=== PATIENT | female | born 1980 | race Caucasian/White ===

== ENCOUNTER 2018-05-04 10:28 | Outpatient (CLI) | payer BC | END 2018-05-04 10:29 | disposition home or self-care (01) | LOC: BICMAMMO 10:28 | PROVIDERS: ATTEND Obstetrics & Gynecology | DX: Z12.31 Encounter for screening mammogram for malignant neoplasm of breast (principal); Z80.3 Family history of malignant neoplasm of breast | CPT/HCPCS: 77063; 77067 ==

== ENCOUNTER 2018-05-21 14:24 | Outpatient (CLI) | payer BC ==
--- NOTE | 2018-05-21 15:28 | MRI ---
MRI CERVICAL SPINE PERFORMED WITHOUT CONTRAST ENHANCEMENT: Date: 05/21/18 HISTORY: Neck pain with right arm radiculopathy. FINDINGS: The vertebral bodies are normal in height. There are some disc desiccation changes in the lower cervi sammy spine, with only minimal disc narrowing at C5-6. The spinal cord signal change is normal. C2-3: Unremarkable. C3-4: Unremarkable. C4-5: Unremarkable. C5-6: Minimal disc bulge without canal or significant foraminal narrowing. There are some minimal u ncovertebral changes at this level. C6-7: There is some borderline right-sided foraminal narrowing. No significant disc bulge. Left fora men does not appear significantly narrowed. C7-T1: Unremarkable. IMPRESSION: Mild right-sided foraminal narrowing at the C6-7 level. POS: [facility]
== END 2018-05-21 14:25 | disposition home or self-care (01) ==
LOC: SCSMRI 14:24
PROVIDERS: ATTEND Orthopaedic Surgery
DX: M54.12 Radiculopathy, cervical region (principal); M48.02 Spinal stenosis, cervical region
CPT/HCPCS: 72141

== ENCOUNTER 2018-06-29 12:51 | Outpatient (CLI) | payer BC ==
--- NOTE | 2018-06-29 13:10 | RAD ---
THREE VIEWS RIGHT FOOT: HISTORY: Right foot pain, 4th and 5th metatarsophalangeal injury. FINDINGS: AP, lateral, and oblique views right foot are obtained. The right foot is unremarkable. No evidence of right foot fractures, subluxations, or bony lesions s een. IMPRESSION: Normal 3 views right foot. POS: [facility]
== END 2018-06-29 12:52 | disposition home or self-care (01) ==
LOC: SCSRAD 12:51
PROVIDERS: ATTEND Family Medicine
DX: M79.671 Pain in right foot (principal)

== ENCOUNTER 2019-04-11 13:53 | Outpatient (CLI) | payer BC ==
--- NOTE | 2019-04-11 15:29 | MRI ---
MRI Cervical spine without contrast: HISTORY: Cervical radicular pain. Patient states chronic neck pain. COMPARISON: 05/21/2018 FINDINGS: The craniocervical junction is unremarkable. No significant cord signal abnormality. Paravertebral soft tissues have a normal appearance and normal signal intensity. C1-2:No significant stenosis. C2-3: There is no disc bulge or disc herniation. The central spinal canal and neural foramina are pat ent. C3-4: Minimal disc osteophyte complex is present. However, the central spinal canal and neural forami na are patent. C4-5: There is no disc bulge or disc herniation. The central spinal canal and neural foramina are pat ent. C5-6: Again, there is a mild disc osteophyte complex and uncinate process hypertrophy. The left neura l foramen is patent. Mild right-sided neural foraminal narrowing is present. There is mild effacement of the ventral subarachnoid space without significant central canal narrowing. C6-7: Mild disc osteophyte complex and uncinate process hypertrophy are again seen. Mild to moderate bilateral neural foraminal narrowing is present. C7-T1: There is no disc bulge or disc herniation. The central spinal canal and neural foramina are pa tent. IMPRESSION: Mild disc degenerative changes not significantly progressed when compared to the prior exam. Greatest degree of neural foraminal narrowing is present at the C6-7 level where there is mild to moderate bilateral neural foraminal narrowing greater on the left.
== END 2019-04-11 13:54 | disposition home or self-care (01) ==
LOC: SCSMRI 13:53
PROVIDERS: ATTEND Anesthesiology Pain Medicine
DX: M50.10 Cervical disc disorder with radiculopathy, unspecified cervical region (principal); M48.02 Spinal stenosis, cervical region
CPT/HCPCS: 72141

== ENCOUNTER 2019-08-19 07:14 | Outpatient (CLI) | payer BC, OTHER ==
[2019-08-19 16:36] LABS: Hemoglobin 13.5 g/dL (12.0-16.0); Mean Corpuscular HGB CONC 33.6 g/dL (32.0-36.0); Mean Corpuscular Hemoglobin 32.1 pg (27.0-31.0); Mean Corpuscular Volume 95.6 fL (78.0-98.0); Mean Platelet Volume 8.2 fL (7.4-10.4); Platelet Count 348 thou/uL (130-400); RBC Distribution Width 11.1 % (11.5-14.5); Red Blood Cell (RBC) Count 4.19 mill/uL (4.20-5.40); White Blood Cell (WBC) Count 8.3 thou/uL (4.8-10.8)
[2019-08-19 16:41] LABS: PTT 26.2 SEC (22.9-36.1); Prothrombin Time 12.8 sec (12.0-14.7)
[2019-08-19 16:55] LABS: Anion Gap 14 mmol/L (10-20); BUN (Urea Nitrogen) 15 mg/dL (7.0-18.7); Calc. Creatinine Clearance 0 mL/min (70-130); Calcium 9.1 mg/dL (7.8-10.44); Carbon Dioxide 26 mmol/L (22-29); Chloride 103 mmol/L (98-107); Estimated GFR-MDRD 79; Glucose 102 mg/dL (70-105); Potassium 4.1 mmol/L (3.5-5.1); Sodium 139 mmol/L (136-145)
[2019-08-20 17:10] LABS: SARS-CoV-2 MS2 Positive; SARS-CoV-2 N Gene Negative; SARS-CoV-2 S Gene Negative; SARS-CoV-2 orf1ab Negative
== END 2019-08-19 07:15 | disposition home or self-care (01) ==
LOC: LABBT 07:14
PROVIDERS: ATTEND Surgery
DX: Z01.818 Encounter for other preprocedural examination (principal); Z11.59 Encounter for screening for other viral diseases; M48.02 Spinal stenosis, cervical region; M54.12 Radiculopathy, cervical region
CPT/HCPCS: 80048; 85027; 85610; 85730; 87635; 93005; 93010; U0003

== ENCOUNTER 2019-08-23 10:29 | Day surgery (SDC) | payer BC ==
[2019-08-19 15:12] VITALS: BMI 23.2
[2019-08-23] MEDS ORDERED: Lidocaine 1% PF 5 ML VIAL ONE (11:06)
[2019-08-23] MEDS ORDERED: Metoclopramide HCl 10 MG/2 ML VIAL ONE (11:06)
[2019-08-23] MEDS ORDERED: PROPOFOL 200 MG/20 ML VIAL ONE (11:06)
[2019-08-23] MEDS ORDERED: Dexamethasone 20 MG/5 ML VIAL ONE (11:06)
[2019-08-23] MEDS ORDERED: Glycopyrrolate 0.2 MG/ML 5 ML SYRINGE ONE (11:06)
[2019-08-23] MEDS ORDERED: Rocuronium Bromide 10 MG/ML (10ML VIAL) ONE (11:06)
[2019-08-23] MEDS ORDERED: Ondansetron PF 4 MG/2 ML Vial ONE ×2 (11:06→15:50)
[2019-08-23] MEDS ORDERED: Scopolamine 1.5 mg/72 hour Patch ONE (12:12)
[2019-08-23] MEDS ORDERED: Midazolam HCl 2 mg/2 ml Vial ONE (13:08)
[2019-08-23] MEDS ORDERED: Fentanyl 100 MCG/2 ML VIAL ONE ×4 (13:32→16:16)
[2019-08-23] MEDS ORDERED: Thrombin 5000 UNITS/5 ML VIAL ONE (14:33)
[2019-08-23] MEDS ORDERED: Promethazine HCl 25 MG/ML VIAL IM PRN (14:44)
[2019-08-23] MEDS ORDERED: HYDROmorphone 2 MG/ML VIAL SLOW IVP PRN (14:44)
[2019-08-23] MEDS ORDERED: Promethazine HCl 25 MG/ML VIAL SLOW IVP PRN (14:44)
[2019-08-23] MEDS ORDERED: Ondansetron HCl/PF 4 MG/2 ML Vial IVP PRN (14:44)
[2019-08-23] MEDS ORDERED: PACU-Morphine 4MG/ML VIAL SLOW IVP PRN (14:44)
[2019-08-23] MEDS ORDERED: Morphine Sulfate 2 MG/ML SYRINGE SLOW IVP PRN (14:44)
[2019-08-23] MEDS ORDERED: Morphine 2 MG/ML SYRINGE SLOW IVP PRN (16:23)
[2019-08-23] MEDS ORDERED: Mag-Al 1200 mg/1200 mg/30 ML UDCUP PO PRN (16:23)
[2019-08-23] MEDS ORDERED: Bisacodyl 10 MG SUPP PR PRN (16:23)
[2019-08-23] MEDS ORDERED: Acetaminophen 325 MG TAB PO PRN (16:23)
[2019-08-23] MEDS ORDERED: Ondansetron PF 4 MG/2 ML Vial IVP PRN (16:23)
[2019-08-23] MEDS ORDERED: Fleet Enema 133 ML BOT PR PRN (16:23)
[2019-08-23] MEDS ORDERED: Milk Of Magnesia 30 ML UDCUP PO PRN (16:23)
[2019-08-23] MEDS ORDERED: traMADol HCl 50 MG TAB PO PRN (16:23)
[2019-08-23] MEDS: Sodium Chloride 0.9% 1,000 ML IV SCH (18:07)
[2019-08-23] MEDS: CEFAZOLIN 2 GM in Premix Bag 1 BAG IVPB SCH (20:15)
[2019-08-23] MEDS: tiZANidine HCl 4 MG TAB PO PRN (20:25)
[2019-08-23] MEDS: Acetaminophen/Codeine 30-300mg Tablet PO PRN (23:42)
[2019-08-24] MEDS: CEFAZOLIN 2 GM in Premix Bag 1 BAG IVPB SCH (03:21)
[2019-08-24] MEDS: Acetaminophen/Codeine 30-300mg Tablet PO PRN ×2 (03:27→10:40)
[2019-08-24] MEDS: Sodium Chloride 0.9% 1,000 ML IV SCH (04:32)
[2019-08-24] MEDS: tiZANidine HCl 4 MG TAB PO PRN (07:35)
--- NOTE | 2019-08-24 10:01 | OP ---
DATE OF PROCEDURE: 08/23/2019 [employer]ING CLEANER: Jenni Quintanilla PA-C. LOCATION: OR-12. WOUND CLASSIFICATION: Type 1 wound. PREOPERATIVE DIAGNOSIS: Cervical stenosis with neck and arm pain with right C7 radiculopathy. POSTOPERATIVE DIAGNOSIS: Cervical stenosis with neck and arm pain with right C7 radiculopathy. PROCEDURE PERFORMED: 1. Anterior C6-C7 diskectomy for decompression of the spinal cord nerve roots. 2. Placement of interbody spacer packed with local bone autograft obtained with same incision and allograft, C6-C7 arthrodesis. 3. Anterior cervical plate and screw fixation, C6-C7. 4. Use of operating microscope for microdissection. DESCRIPTION OF PROCEDURE: After informed consent was obtained from the patient , the patient was brought to the OR. Proper patient, pause, and identification were carried out. She was placed under excellent endotracheal anesthesia and a linear eamon over the right anterior neck was drawn out in the neck crease. This area was sterilely cleansed, prepared, and draped. Proper patient, pause, and identification were carried out. The wound was then opened with a combination of sharp, monopolar, and blunt dissection. We proceeded to the anterior C6-C7 segment. Distraction occurred following localization. We then performed a C6-C7 diskectomy and decompression of the spinal cord and bilateral C7 nerve roots. We prepared the endplates, this is using the microscope for microdissection. We then placed interbody spacer in appropriate dimension, packed with local bone autograft obtained with same incision and allograft. I removed the microscope and anterior cervical plate and screw fixation of C6-C7 occurred. We were satisfied with our decompression and the construct. Copious irrigation occurred throughout as did maximizing hemostasis. The wound was then closed in anatomic layers over drain. Job ID: [id number] [facility]
--- NOTE | 2019-08-24 10:06 | PRG ---
DATE OF SERVICE: 08/24/2019 SUBJECTIVE: Ms. Bowden is postoperative day #1 from C6-C7 ACDF. Her arm pain has resolved. She is doing well with good strength in her C7 myotomes. Drain output is zero. We went over do's and don'ts in the postoperative period and she will now be dismissed. Job ID: [id number]
[2019-08-24 11:20] VITALS: BP 104/68; TEMP 98.6
== END 2019-08-24 12:10 | disposition home or self-care (01) ==
LOC: SDC 10:29 → SURG B 16:23 → SDC 08-24 12:10
PROVIDERS: ATTEND Surgery
PROC: 0RG10A0 Fusion of Cervical Vertebral Joint with Interbody Fusion Device, Anterior Approach, Anterior Column, Open Approach (ICD-10-PCS; principal; 2019-08-23)
PROC: 0RT30ZZ Resection of Cervical Vertebral Disc, Open Approach (ICD-10-PCS; principal; 2019-08-23)
DX: M48.02 Spinal stenosis, cervical region (principal); M54.12 Radiculopathy, cervical region; I10 Essential (primary) hypertension; Z79.899 Other long term (current) drug therapy; Z88.5 Allergy status to narcotic agent
CPT/HCPCS: 76000; C1776; J0690; J1100; J2001; J2250; J2405; J2704; J2765; J3010

== ENCOUNTER 2019-10-06 14:15 | Outpatient (CLI) | payer BC ==
--- NOTE | 2019-10-06 14:42 | RAD ---
EXAM: 3 views of the cervical spine HISTORY: Status post fusion of C6 and C7 COMPARISON: MRI cervical spine 04/11/2019 FINDINGS: AP, lateral, and open mouth odontoid views of the cervical spine shows the patient is statu s post anterior fusion of C6 and C7 with a plate and screws. A disc spacer is seen in good position within the disc space. There is normal height and alignment of the vertebral bodies and remaining int ervertebral discs without fracture or subluxation. No degenerative changes are seen. No prevertebral soft tissue swelling is seen. IMPRESSION: Postsurgical changes of the cervical spine without evidence of complication.
== END 2019-10-06 14:16 | disposition home or self-care (01) ==
LOC: SCSRAD 14:15
PROVIDERS: ATTEND Physician Assistant
DX: M54.12 Radiculopathy, cervical region (principal); M48.02 Spinal stenosis, cervical region; Z98.1 Arthrodesis status
CPT/HCPCS: 72040

== ENCOUNTER 2020-10-05 10:36 | Outpatient (CLI) | payer BC | END 2020-10-05 10:37 | disposition home or self-care (01) | LOC: BICRAD 10:36 | PROVIDERS: ATTEND Family Medicine | DX: R06.00 Dyspnea, unspecified (principal) | CPT/HCPCS: 71046 ==

== ENCOUNTER 2022-11-27 09:30 | Outpatient (CLI) | payer BC | END 2022-11-27 09:31 | disposition home or self-care (01) | LOC: SCSMRI 09:30 | PROVIDERS: ATTEND Anesthesiology Pain Medicine | DX: M54.16 Radiculopathy, lumbar region (principal) | CPT/HCPCS: 72148 ==

== ENCOUNTER 2022-12-12 09:34 | Outpatient (CLI) | payer BC | END 2022-12-12 09:35 | disposition home or self-care (01) | LOC: SCSMRI 09:34 | PROVIDERS: ATTEND Nurse Practitioner Family | DX: M25.552 Pain in left hip (principal) ==

== ENCOUNTER 2023-08-19 07:22 | Day surgery (SDC) | payer BC | END 2023-08-19 14:28 | disposition home or self-care (01) | LOC: SDC 07:22 | PROVIDERS: ATTEND Orthopaedic Surgery | PROC: 0SQC4ZZ Repair Right Knee Joint, Percutaneous Endoscopic Approach (ICD-10-PCS; principal; 2023-08-19) | DX: S83.211A Bucket-handle tear of medial meniscus, current injury, right knee, initial encounter (principal); M23.91 Unspecified internal derangement of right knee; J45.909 Unspecified asthma, uncomplicated; J30.9 Allergic rhinitis, unspecified; Z79.899 Other long term (current) drug therapy; Z98.890 Other specified postprocedural states; Z88.5 Allergy status to narcotic agent; Z91.048 Other nonmedicinal substance allergy status; X58.XXXA Exposure to other specified factors, initial encounter | CPT/HCPCS: A4306; C1713; J0171; J0665; J1100; J2175; J2250; J2405; J2704; J2795; J3010; J3370-JW; J3490; J7620 ==

== ENCOUNTER 2023-10-19 14:19 | Outpatient (CLI) | payer BC | END 2023-10-19 14:20 | disposition home or self-care (01) | LOC: SCSRAD 14:19 | PROVIDERS: ATTEND Family Medicine | DX: R06.00 Dyspnea, unspecified (principal) | CPT/HCPCS: 71046 ==